=== PATIENT | male | born 1970 | race Native Hawaiian/Other Pacific Islander ===

== ENCOUNTER 2016-05-04 20:32 | Emergency (ER) | payer BC ==
[~2016-05-04] VITALS: Ht 165.1 cm; Wt 71.2 kg
[2016-05-04 21:46] LABS: PLATELET COUNT 170 K/uL (142-355)
[2016-05-04 21:58] LABS: POTASSIUM 3.5 mmol/L (3.6-5.2); SODIUM 136 mmol/L (136-145)
[2016-05-04 23:19] VITALS: BP 122/68; TEMP 98.4
== END 2016-05-04 23:20 | disposition home or self-care (01) ==
LOC: ED 20:32
DX: R50.9 Fever, unspecified (principal); C85.90 Non-Hodgkin lymphoma, unspecified, unspecified site
CPT/HCPCS: 36415; 80053; 81000; 85027; 87081; 87804; 87880; 96360; 99284

== ENCOUNTER 2016-07-31 11:23 | Outpatient (CLI) | payer BC | END 2016-07-31 12:30 | disposition home or self-care (01) | LOC: LABW 11:23 | DX: J20.8 Acute bronchitis due to other specified organisms (principal); M54.5 Low back pain | CPT/HCPCS: 87070; 87077; 87101; 87205 ==

== ENCOUNTER 2018-03-16 17:25 | Emergency (ER) | payer OTHER ==
[~2018-03-16] VITALS: Ht 170.2 cm; Wt 77.1 kg
[2018-03-16] MEDS ORDERED: ZITHROMAX500 MG PO (17:56)
[2018-03-16] MEDS ORDERED: TAMIFLU75 MG PO (17:56)
[2018-03-16 18:53] LABS: PLATELET COUNT 201 K/uL (142-355)
[2018-03-16 19:34] LABS: POTASSIUM 3.7 mmol/L (3.6-5.2)
[2018-03-16 19:59] VITALS: BP 122/74; TEMP 99.1
== END 2018-03-16 20:00 | disposition home or self-care (01) ==
LOC: ED 17:25
PROVIDERS: Emergency Medicine
DX: B34.9 Viral infection, unspecified (principal); J06.9 Acute upper respiratory infection, unspecified
CPT/HCPCS: 80053; 85027; 87502; 87651; 99283; J7120

== ENCOUNTER 2021-12-25 09:47 | Outpatient (CLI) | payer OTHER ==
[~2021-12-25 09:47] MED LIST: TAMIFLU75 MG PO; ZITHROMAX500 MG PO
== END 2021-12-25 19:55 | disposition home or self-care (01) ==
LOC: LABW 09:47
PROVIDERS: ATTEND Internal Medicine
DX: Z02.71 Encounter for disability determination (principal); F32.A Depression, unspecified
CPT/HCPCS: 36415; 86361

== ENCOUNTER 2022-03-01 11:15 | Emergency (ER) | payer OTHER ==
[~2022-03-01] VITALS: Ht 170.2 cm; Wt 79.4 kg
[2022-03-01 11:15] VITALS: BP 136/92; TEMP 98.2
[2022-03-01 11:48] LABS: PLATELET COUNT 225 K/uL (142-355)
[2022-03-01 11:55] LABS: POTASSIUM 3.6 mmol/L (3.6-5.2)
[2022-03-01 12:02] LABS: PARTIAL THROMBOPLASTIN TIME 25.2 SECONDS (24.5-33.6)
== END 2022-03-01 13:20 | disposition home or self-care (01) ==
LOC: ED 11:15
PROVIDERS: Emergency Medicine
DX: R06.02 Shortness of breath (principal)
CPT/HCPCS: 36415; 36600; 80053; 82805; 83880; 84484; 85027; 85379; 85610; 85730; 93005; 94664; 96374; 99284; J2920

== ENCOUNTER 2022-04-06 15:16 | Emergency (ER) | payer OTHER ==
[~2022-04-06] VITALS: Ht 170.2 cm; Wt 77.1 kg
[2022-04-06 16:26] VITALS: BP 155/96; TEMP 98
== END 2022-04-06 16:26 | disposition home or self-care (01) ==
LOC: ED 15:16
DX: K08.89 Other specified disorders of teeth and supporting structures (principal); K02.9 Dental caries, unspecified
CPT/HCPCS: 96372; 99283; J0696; J1885; J2175; J2405

== ENCOUNTER 2022-04-12 21:17 | Emergency (ER) | payer OTHER | END 2022-04-12 22:26 | disposition left against medical advice (07) | LOC: ED 21:17 | DX: Z53.21 Procedure and treatment not carried out due to patient leaving prior to being seen by health care provider (principal) | CPT/HCPCS: 99281 ==

== ENCOUNTER 2022-04-22 07:47 | Outpatient (CLI) | payer OTHER | END 2022-04-22 19:00 | disposition home or self-care (01) | LOC: CT 07:47 | PROVIDERS: ATTEND Physician Assistant | DX: M54.2 Cervicalgia (principal) | CPT/HCPCS: 36415; 82565; 84520; Q9963 ==

== ENCOUNTER 2022-04-25 08:08 | Outpatient (CLI) | payer OTHER | END 2022-04-25 19:31 | disposition home or self-care (01) | LOC: CT 08:08 | PROVIDERS: ATTEND Physician Assistant | DX: M54.2 Cervicalgia (principal); R22.1 Localized swelling, mass and lump, neck ==